=== PATIENT | male | born 1990 | race African-American/Black ===

== ENCOUNTER 2017-06-05 19:00 | Inpatient (IN) | payer OTHER ==
[~2017-06-05] VITALS: Ht 180.3 cm; Wt 72.6 kg
--- NOTE | ~2017-06-05 | PN ---
Unit #: [id number] #: [id number] Patient: DAYANA PRESTON [id number] [facility] [address] [place] [address] [id number] I MR#: [id number] NAME: DAYANA PRESTON ROOM: P123 Age: 27 Sex: M Admission Date: 06/05/2017 : 1990 Attending Physician: Servando Ross M.D. Admitting Physician: Servando Ross M.D. Primary Care Physician: Primary Care Physician Nicole MANDEL PROGRESS NOTES DATE 06/13/2017 DISCUSSION Mr. Preston is a 27-year-old male who was seen today and chart was reviewed and case was discussed with the staff. He has been anxious, withdrawn and rather seclusive to himself. Meanwhile, he has been cooperative with treatment recommendations and has been taking medications and tolerating them fairly well with no reported side effects. MENTAL STATUS EXAMINATION Young male who was casually dressed with fair personal hygiene and appears to be in no acute distress or discomfort. He was awake and alert with impaired attention and concentration. His mood was anxious with congruent affect. His speech is slow and restricted in content. His thought processes were disorganized with some looseness of associations. His insight and judgement remains significantly impaired. TREATMENT PLAN 1. We will continue on his current medications and treatment protocol. Will monitor his response to the medications and make further adjustments as needed. 2. Will continue to follow up. Dictated by... Grace Morocho/mati TD: 06/13/2017 23:20 JOB #: [id number] Unit #: [id number] #: [id number] Patient: DAYANA PRESTON PROGRESS NOTES Page 1 of 1 X Servando Ross MD PROGRESS NOTE
--- NOTE | ~2017-06-05 | HP ---
Unit #: [id number] #: [id number] Patient: DAYANA MOHAMUD [id number] [place] [address] [id number] I MR#: [id number] NAME: DAYANA MOHAMUD ROOM: [facility] Age: 27 Sex: M Admission Date: 06/05/2017 : 1990 Attending Physician: Servando Ross M.D. Admitting Physician: Servando Ross M.D. Primary Care Physician: Primary Care Physician No HISTORY AND PHYSICAL HISTORY OF PRESENT ILLNESS The patient is a 27-year-old male admitted to [address] [place] [address] on 06/05/2017 for psychosis. The patient was sleeping at the time of assessment. Some of his information was retrieved from the chart. PAST MEDICAL HISTORY None noted. PAST SURGICAL HISTORY None noted. SOCIAL HISTORY He is disabled. He lives with his brother. Denies tobacco and alcohol use but does smoke marijuana. FAMILY MEDICAL HISTORY Noncontributory. ALLERGIES No known drug allergies. CURRENT MEDICATIONS Depakote and Zyprexa. REVIEW OF SYSTEMS Unable to obtain due the patient being asleep. PHYSICAL EXAM GENERAL: He is sleeping but not in any acute distress. VITAL SIGNS: Temperature 98.1, heart rate 68, respiration 16, blood pressure 112/65. HEIGHT: 5'11". WEIGHT: 160 pounds. SKIN: Warm and dry without rash or lesion. HEENT: Normocephalic. TMs not viewed. Oral and nasal passages clear. Conjunctivae clear. PERRLA. EOMs intact. NECK: Supple without lymphadenopathy or thyromegaly. HEART: Regular rate and rhythm without murmur. LUNGS: Clear. ABDOMEN: Soft, nontender. : Not done. EXTREMITIES: No evidence of cyanosis, clubbing or edema. Moves all without focal deficit. Unit #: [id number] #: [id number] Patient: DAYANA MOHAMUD NEUROLOGICAL: Grossly within normal limits. Cranial Nerves: II: Visual garvin are intact. III, IV AND : Extraocular movements are intact. Pupils are equal, round and reactive to light. V: Facial sensation is grossly normal. VII: Facial movements and expression are normal. VIII: Auditory acuity grossly intact. IX, X: Uvula is midline. Phonation is normal. XI: Patient shrugs shoulders and turns head normally. XII: Tongue protrudes in the midline. Sensory and Motor Function: Sensory and motor sensation is grossly normal. Motor: moves all extremities well. IMPRESSION Psychiatric admission. RECOMMENDATIONS Psychiatric per psychiatrist. MEDICAL: No contraindication to participate in facility activities. MEDICAL PROGNOSIS Good. MEDICAL CONDITION Stable. Dictated by... Pedro Patel TD: 06/08/2017 04:11 JOB #: [id number] HISTORY AND PHYSICAL Page 1 of 1 X MCKAY PANDEY APRN HISTORY AND PHYSICAL
--- NOTE | ~2017-06-05 | PN ---
Unit #: [id number] #: [id number] Patient: DAYANA PRESTON [id number] [facility] [address] [place] [address] [id number] I MR#: [id number] NAME: DAYANA PRESTON ROOM: [facility] Age: 27 Sex: M Admission Date: 06/05/2017 : 1990 Attending Physician: Servando Ross M.D. Admitting Physician: Servando Ross M.D. Primary Care Physician: Primary Care Physician Nicole MORA NOTES DATE OF SERVICE 06/12/2017 DISCUSSION Mr. Preston is a 27-year-old male who was seen today. Chart was reviewed and case was discussed with the staff. He has been anxious, withdrawn, and rather seclusive to himself. Meanwhile, she has been cooperative with the treatment recommendations. He has been taking the medications and tolerating them fairly well with no reported side effects. MENTAL STATUS EXAMINATION Young male who is casually dressed with fair personal hygiene, appears to be in no acute distress or discomfort. He was awake and alert with intact orientation. His mood is anxious with congruent affect. He denies any suicidal or homicidal ideations. His insight and judgment remain slightly impaired. TREATMENT PLAN 1. We will continue him on his current medications and treatment protocol. We will monitor his response to the medications and make further adjustments as needed. 2. We will continue to follow up. Dictated by... Grace Morocho/bzg TD: 06/12/2017 11:09 JOB #: [id number] Unit #: [id number] #: [id number] Patient: DAYANA PRESTON PROGRESS NOTES Page 1 of 1 X Servando Ross MD X PROGRESS NOTE
--- NOTE | ~2017-06-05 | PN ---
Unit #: [id number] #: [id number] Patient: DAYANA PRESTON [id number] [facility] [address] [place] [address] [id number] I MR#: [id number] NAME: DAYANA PRESTON ROOM: [facility]3 Age: 27 Sex: M Admission Date: 06/05/2017 : 1990 Attending Physician: Servando Ross M.D. Admitting Physician: Servando Ross M.D. Primary Care Physician: Primary Care Physician Nicole MORA NOTES DATE June 14, 2017 DISCUSSION Mr. Preston is a 27-year-old male, with mood disorder and psychosis, who was seen today and chart was reviewed and the case was discussed with the staff. Staff reports that patient has not been doing well and has been very seclusive to himself, and has been exhibiting bizarre behavior, and stays up all night long pacing the hallways, constantly washing his hands in the sink and he (1) and has been on Depakote and long-acting injectable, Invega has been started, as well; however, he has not been able to show a therapeutic response and he has been having trouble sleeping at night. Meanwhile, we will recommend initiating trazodone to help him sleep and will monitor his response and make further adjustments as needed. Dictated by... Grace Morocho/miroslava TD: 06/15/2017 10:48 JOB #: [id number] [facility] PROGRESS NOTES Page 1 of 1 X Servando Ross MD PROGRESS NOTE
--- NOTE | ~2017-06-05 | PN ---
Unit #: [id number] #: [id number] Patient: DAYANA PRESTON [id number] [facility] [address] [place] [address] [id number] I MR#: [id number] NAME: DAYANA PRESTON ROOM: [facility]3 Age: 27 Sex: M Admission Date: 06/05/2017 : 1990 Attending Physician: Servando Ross M.D. Admitting Physician: Servando Ross M.D. Primary Care Physician: Primary Care Physician Nicole MANDEL PROGRESS NOTES DATE 06/08/2017 DISCUSSION Mr. Preston is a 27-year-old, male who was seen today and chart was reviewed and case was discussed with the staff. He has been anxious, withdrawn and rather seclusive to himself. Meanwhile, he has been cooperative with the treatment recommendations. He has been taking the medication and tolerating them fairly well with no reported side effects. MENTAL STATUS EXAM Young male who was casually dressed with marginal personal hygiene, appears to be in no acute distress or discomfort. He was awake with impaired attention and concentration. His mood was anxious with congruent affect. His speech was slow and tangential. His thought processes were disorganized with some looseness of associations, paranoid ideation, thought blocking and delusional behavior. His insight and judgement remains significantly impaired. TREATMENT PLAN 1. We will continue him on his current medications and treatment protocol. We will monitor his response to the medication and make further adjustments as needed. 2. We will continue to follow up. Dictated by... Grace Morocho/angelica TD: 06/09/2017 04:19 JOB #: [id number] Unit #: [id number] #: [id number] Patient: DAYANA PRESTON PROGRESS NOTES Page 1 of 1 X Servando Ross MD PROGRESS NOTE
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
--- NOTE | ~2017-06-05 | PN ---
Unit #: [id number] #: [id number] Patient: DAYANA PRESTON [id number] [facility] [address] [place] [address] [id number] I MR#: [id number] NAME: DAYANA PRESTON ROOM: [facility]3 Age: 27 Sex: M Admission Date: 06/05/2017 : 1990 Attending Physician: Servando Ross M.D. Admitting Physician: Servando Ross M.D. Primary Care Physician: Primary Care Physician Nicole MORA NOTES DATE 06/11/2017 DISCUSSION Mr. Preston is a 27-year-old, male who was seen today and chart was reviewed and case was discussed with the staff. He remains anxious, withdrawn, disorganized and rather bizarre and seclusive to himself and not functioning very well. However, staff informed me that his brother wants him to get long acting injection antipsychotic stating that he does not do good outside of the hospital and does not take medications on a regular basis and then he decompensates soon afterwards. Meanwhile, he has been taking the medications and tolerating them fairly well with no reported side effects. MENTAL STATUS EXAM Young male who was casually dressed with fair personal hygiene, appears to be in no acute distress or discomfort. He was awake and alert with impaired attention and concentration. His mood was anxious with congruent affect. His speech was slow and restricted in content. His thought processes were disorganized with some looseness of associations. His insight and judgement remains significantly impaired. TREATMENT PLAN 1. We will continue him on his current medications and treatment protocol. We will monitor his response to the medications and make further adjustments as needed. 2. We will continue to follow up. Dictated by... Grace Morocho/angelica TD: 06/11/2017 21:05 JOB #: [id number] Unit #: [id number] #: [id number] Patient: DAYANA PRESTON PROGRESS NOTES Page 1 of 1 X Servando Ross MD X PROGRESS NOTE
--- NOTE | ~2017-06-05 | PN ---
Unit #: [id number] #: [id number] Patient: DAYANA MOHAMUD [id number] [facility] [address] [place] [address] [id number] I MR#: [id number] NAME: DAYANA MOHAMUD ROOM: [facility]3 Age: 27 Sex: M Admission Date: 06/05/2017 : 1990 Attending Physician: Servando Ross M.D. Admitting Physician: Servando Ross M.D. Primary Care Physician: Primary Care Physician Nicole MORA NOTES DATE OF SERVICE 06/07/2017 DISCUSSION Mr. Mohamud is a 27-year-old male with mood disorder and psychosis who was seen today. Chart was reviewed and case was discussed with the staff. He remains anxious, withdrawn, agitated, irritable, aggressive, and exhibiting a lot of paranoia and delusional behavior. Meanwhile, he has been taking the medications and tolerating them fairly well with no reported side effects. MENTAL STATUS EXAMINATION Young male who is casually dressed with fair personal hygiene, appears to be in no acute distress or discomfort. He was awake and alert with impaired attention and concentration. His mood is anxious with congruent affect. Speech is slow and tangential. His thought processes were disorganized with some looseness of associations. His insight and judgment remain significantly impaired. TREATMENT PLAN 1. We will continue him on his current treatment protocol. We will monitor his response to the medications and make further adjustments as needed. 2. We will continue to follow up. Dictated by... Servando Ross M.D. IAA/bzg TD: 06/08/2017 10:26 JOB #: [id number] Unit #: [id number] #: [id number] Patient: DAYANA MOHAMUD PROGRESS NOTES Page 1 of 1 X Servando Ross MD PROGRESS NOTE
--- NOTE | ~2017-06-05 | PN ---
Unit #: [id number] #: [id number] Patient: DAYANA PRESTON [id number] [facility] [address] [place] [address] [id number] I MR#: [id number] NAME: DAYANA PRESTON ROOM: [facility]3 Age: 27 Sex: M Admission Date: 06/05/2017 : 1990 Attending Physician: Servando Ross M.D. Admitting Physician: Servando Ross M.D. Primary Care Physician: Primary Care Physician Nicole MANDEL PROGRESS NOTES DATE 06/10/2017 DISCUSSION Ms. Preston is a 27-year-old white male who was seen today and chart was reviewed and case was discussed with the staff. He has been anxious, withdrawn, rather seclusive to himself. Meanwhile, he has been cooperative with treatment recommendations and has been taking medications and tolerating them fairly well with no reported side effects. MENTAL STATUS EXAMINATION Young male who was casually dressed with fair personal hygiene and appears to be in no acute distress or discomfort. He was awake and alert on interaction with intact orientation. His mood was anxious with congruent affect. His speech is slow and restricted in content. He denies any suicidal or homicidal ideations. His insight and judgement remains slightly impaired. TREATMENT PLAN 1. Will continue his current medications and treatment protocol. Will monitor his response to the medications and make further adjustments as needed. 2. Will continue to follow up. Dictated by... Grace Morocho/mati TD: 06/10/2017 17:19 JOB #: [id number] Unit #: [id number] #: [id number] Patient: DAYANA PRESTON PROGRESS NOTES Page 1 of 1 X Servando Ross MD PROGRESS NOTE
--- NOTE | ~2017-06-05 | PN ---
Unit #: [id number] #: [id number] Patient: DAYANA PRESTON [id number] [facility] [address] [place] [address] [id number] I MR#: [id number] NAME: DAYANA PRESTON ROOM: P123 Age: 27 Sex: M Admission Date: 06/05/2017 : 1990 Attending Physician: Servando Ross M.D. Admitting Physician: Servando Ross M.D. Primary Care Physician: Primary Care Physician Nicole MANDEL PROGRESS NOTES DATE OF SERVICE: 06/09/2017 SUBJECTIVE Mr. Preston is a 27-year-old male, with mood disorder and psychosis, who was seen today and chart was reviewed and case was discussed with staff. He has been anxious, withdrawn, and rather seclusive to himself. Meanwhile, he has been cooperative with treatment recommendations and has been taking the medications and tolerating them fairly well with no reported side effects. MENTAL STATUS EXAMINATION Young male, who was casually dressed with fair personal hygiene. His mood was anxious with a congruent affect. His speech was slow and restricted in content. His thought processes were disorganized with some looseness of associations and flight of ideas. His insight and judgment remain significantly impaired. TREATMENT PLAN 1. We will continue him on his current medications and treatment protocol. We will monitor his response and make further adjustments as needed. 2. We will continue to follow up. Dictated by... Grace Morocho/judithl TD: 06/10/2017 05:43 JOB #: [id number] [facility] PROGRESS NOTES Page 1 of 1 X Servando Ross MD PROGRESS NOTE
[2017-06-15 08:46] LABS: URINE SOURCE CLEAN CATCH
[2017-06-15 09:41] LABS: URINE APPEARANCE CLEAR; URINE BILIRUBIN NEG (NEG); URINE BLOOD NEG (NEG); URINE COLOR YELLOW; URINE GLUCOSE NEG (NEG); URINE KETONE NEG (NEG); URINE LEUKOCYTE ESTERASE NEG (NEG); URINE NITRATE NEG (NEG); URINE PH 6.5 (5-8); URINE PROTEIN NEG (NEG); URINE SPECIFIC GRAVITY 1.017 (1.003-1.035)
[2017-06-15 10:14] LABS: AMPHETAMINE NEG (NEG); BARBITURATES NEG (NEG); BENZODIAZEPINES NEG (NEG); COCAINE NEG (NEG); MARIJUANA NEG (NEG); OPIATES NEG (NEG); TRICYCLIC ANTIDEPRESSANTS NEG (NEG); U METHADONE NEG (NEG)
== END 2017-06-15 16:54 | disposition home or self-care (01) | DRG 885 ==
LOC: P1S 21:57 → POF 06-06 13:15 → P1S 06-06 13:17
PROVIDERS: Psychiatry & Neurology Psychiatry
DX: F20.0 Paranoid schizophrenia (principal); F12.90 Cannabis use, unspecified, uncomplicated
CPT/HCPCS: 80307; 81003; J3486